=== PATIENT | male | born 1940 ===

== ENCOUNTER 2019-11-21 00:58 | Inpatient (IN) | payer MEDICARE, BC ==
[~2019-11-21] VITALS: Ht 180.3 cm; Wt 102.7 kg
--- NOTE | ~2019-11-21 | HEMODYNAMI ---
PATIENT:RIC AVELAR MEDICAL RECORD: [id number] : 40 LOCATION:[facility] D.[facility] ADMISSION DATE: 11/21/19 Generatedon:11/22/201911:54 Patient name: RIC AVELAR Patient #: [id number] SSN: : Date of study: 11/22/2019 Page: Of Hemodynamic Procedure Report Patient Data Patient Demographics Procedure consent was obtained First Name: RIC Gender: Male Last Name: ROSIO : 1940 Patient #: [id number] Age: 78 year(s) Race: Unknown Additional ID: [id number] Contact details [address]: [address] [place] [address] [id number] State: [place] City: [place] Zip code: [address] Past Medical History Allergies: No known allergies Admission Admission Data Admission Date: 11/21/2019 Admission Time: 16:54 Arrival Date: 11/21/2019 Arrival Time: 0:00 Room #: [facility] Height (in.): 59.84 BSA: 2.01 (m2) Height (cm.): 152 BMI: 46.75 (kg/m2) Weight (lbs.): 238.1 Weight (kg.): 108 Lab Results Lab Result Date: 11/22/2019 Lab Result Time: 0:00 Biochemistry Name Units Result Min Max BUN mg/dl 20 --(----)*- 7 18 Creatinine mg/dl 1.3 --(---*)-- 0.6 1.3 Procedure Procedure Types Cath Procedure Diagnostic Procedure Cardioversion External RENAE Procedure Description Procedure Date Procedure Date: 11/22/2019 Procedure Start Time: 11:29 Procedure End Time: 11:50 Procedure Staff Name Function Jarrell Cooper MD Performing Physician Mahesh Ann Jr, CRNA Additional personnel Christina Cuba RT Monitor Pratibha Hennessy RN Nurse Caridad Rivas Game Designer Procedure Data Cath Procedure Fluoroscopy Diagnostic fluoroscopy Total fluoroscopy Time: 0 time: 0 min min Diagnostic fluoroscopy Total fluoroscopy dose: 0 dose: 0 mGy mGy Estimated blood loss: 0 ml Procedure Complications No complications Procedure Medications Medication Administration Route Dosage Oxygen 8 l/min Hurricaine Shelby P.O. 1 Sprays Refer to Anesthesia Notes for Sedation Medications Hemodynamics Rest BSA: 2.01 (m2) O2 Consumption: Estimated: 219.44 (ml/min) O2 Consumption indexed : Estimated:109.17 (ml/min/m) Heart Rate: 56 (bpm) Snapshots Pre Cath Intra NCS Post Cath Vital Signs Time Heart Resp SPO2 etCO2 NIBP Rhythm Pain Sedation Rate (ipm) (%) (mmHg) (mmHg) Status Level (bpm) 11:27:53 98 18 94 0 112/64(82) A-Fib 0 (11) 10(A) , No pain 11:32:02 98 19 90 0 90/64(74) A-Fib 0 (11) 10(A) , No pain 11:36:08 61 18 90 0 87/48(74) SB 0 (11) 9(A) , No pain 11:38:36 55 16 90 0 91/48(72) SB 0 (11) 9(A) , No pain 11:42:43 48 17 91 0 91/47(60) SB 0 (11) 9(A) , No pain 11:46:49 52 18 95 0 90/52(66) SB 0 (11) 10(A) , No pain Medications Time Medication Route Dose Verified Delivered Reason Notes Effectiv eness by by 11:30:05 Oxygen NC-high 8 Jarrell Mckinnon used for flow l/min St Nikunj Hennessy RN procedure 11:30:14 Hurricaine P[address]O. 1 Jarrell Mckinnon Per Shelby Sprays St Nikunj Hennessy RN physician 11:30:21 Refer to Jarrell Mckinnon Anesthesia St Nikunj Hennessy RN Notes for Sedation Medications Procedure Log Time Note 11:08:27 Informed consent obtained and on chart 11:08:32 Patient Weight : 238.1 lbs 11:08:32 Patient Height : 59.84 inches 11:09:01 Procedure Status Cardioversion, RENAE. 11:09:02 Time tracking: Regular hours (M-F 7:00 - 5:00) 11:09:05 Plan of Care:Hemodynamics will remain stable., Cardiac rhythm will remain stable., Comfort level will be maintained., Respiratory function will remain adequate., Patient/ family verbilizes understanding of procedure., Procedure tolerated without complication., Recovers from procedure without complications.. 11:09:10 H&P Date Dictated: 11/22/2019 ER History on chart.. 11:09:16 Patient allergic to No known allergies 11:10:05 Lab Result : BUN 20 mg/dl 11:10:05 Lab Result : Creatinine 1.3 mg/dl 11:10:10 Christina Cuba RT(R) sent for patient. Start room use. 11:20:04 Mahesh Ann Jr PRE PRESS MANAGER present and monitoring patient for TIVA. 11:21:54 Patient arrived from Med II to CCL 2. Patient remains on bed/stretcher for procedure. 11:26:19 Warm blankets applied, and francisco hugger turned on for patient comfort. 11:26:19 Correct patient and procedure confirmed by team. 11:26:20 ECG and BP/O2 sat monitors applied to patient. 11:26:31 Rhythm: atrial fibrillation 11:26:32 Full Disclosure recording started 11:26:35 Pre-procedure instructions explained to patient. 11:26:35 Pre-op teaching completed and patient verbalized understanding. 11:26:36 Family in patients room. 11:26:38 Patient NPO since Midnight. 11:26:54 Is patient on blood thinner?No 11:27:31 Patient diabetic? Yes. 11:27:35 If diabetic: On Metformin? No 11:27:40 Previous problem with sedation/anesthesia? No ? 11:27:41 Snore? Yes 11:27:42 Sleep apnea? Yes 11:27:45 Deviated septum? No 11:27:46 Opens mouth fully? Yes 11:27:47 Sticks out tongue? Yes 11:27:49 Airway obstruction? No ? 11:27:50 Dentures? No ? 11:27:52 Patient pain scale 0/10 ?. 11:27:56 IV patent on arrival in right hand with 0.9% NaCl at [facility]. 11:27:59 Lab results completed and on chart. 11:28:01 Alarms reviewed by Ambrose Wood 11:28:31 Quick Combo opened to sterile field. 11:28:33 --------ALL STOP TIME OUT------ 11:28:34 Final Timeout: patient, procedure, and site verified with staff and physician. All members of the team are in agreement. 11::37 Fire Safety Assessment: C--Open oxygen or nitrous oxide is being used. 11::40 Physical assessment completed. ASA score P 3 - A patient with severe systemic disease as per Jarrell Cooper MD. 11::43 Sedation plan: TIVA Medication:Propofol 11:29:15 Procedure started. 11:29:23 RENAE 11::24 Caridad [place] [employer] 1 Thru 6 Home Teacher present for RENAE. 11::44 Vital chart was started 11:30:05 Oxygen 8 l/min NC-high flow was administered by Pratibha Hennessy RN; used for procedure; Verbal order read back and verified. 11:30:14 Hurricaine Shelby 1 Sprays P.O. was administered by Pratibha Hennessy RN; Per physician; Verbal order read back and verified. 11:30:21 Refer to Anesthesia Notes for Sedation Medications was administered by Pratibha Hennessy RN; ; Verbal order read back and verified. 11:30:27 Baseline sample Acquired. 11:30:35 RENAE started. 11:33:54 RENAE completed. 11:33:59 ------Cardioversion------ 11:34:00 Quick combo pads placed on patients chest and back. 11:34:02 Defibrillator synced and charged to 200 Joules. 11:34:11 Shock delivered. 11:35:49 Patient cardioverted to sinus bradycardia with PACs 11:36:20 Procedure ended.(Physican Out) 11:37:41 Fluoroscopy time 00.00 minutes. 11:37:42 Flurop Dose total: 0 11:37:42 Fluoroscopy dose: 0 mGy 11:37:44 Dose Area Product 0 mGy/cm. 11:37:49 Post-procedure physical assessment completed. ASA score P 3 - A patient with severe systemic disease as per Jarrell Cooper MD. 11:37:52 Estimated blood loss: 0 ml 11:37:53 Post procedure instruction explained to patient.Patient verbalizes understanding. 11:37:54 Patient needs reinforcement of post procedure teaching. 11:38:07 Procedure type changed to Cath procedure, Diagnostic procedure, Cardioversion External, RENAE 11:39:02 Procedure and supply charges have been captured, reviewed, submitted and are correct. 11:39:05 Procedure Complication : No complications 11:39:12 RENAE Findings: RENAE w/ cardioversion: no left atrial clot noted (proceed with cardioversion) 11:39:13 Operative report dictated upon procedure completion. 11:39:13 See physician's report for complete and final results. 11:50:20 Vital chart was stopped 11:50:23 Report given to [facility]. 11:50:26 Patient transfered to [facility] with Bed. 11:50:30 Procedure ended. 11:50:30 Full Disclosure recording stopped 11:50:36 End room use (Document Last) 11:50:49 End room use (Document Last) 11:51:07 End room use (Document Last) Device Usage Item Manufacture Quantity Catalog Hospital Part Current Minimal Lot# / Name Number Charge Number [facility] Cem or# Code [employer] 1 [id number] Combo Signature Audit [place]ink[place] Stage Time Signature Unsigned Intra-Procedure 11/22/2019 Christina Cuba 11:50:49 AM RT(R) Intra-Procedure 11/22/2019 Pratibha Hennessy RN 11:51:07 AM Intra-Procedure 11/22/2019 Jarrell Capellan 11:54:28 AM Nikunj JIMENEZ Signatures Performing Physician : Signature : Jarrell Cooper MD Date : Time : Monitor : Christina Cuba Signature : RT Date : Time : Nurse : Pratibha Hennessy RN Signature : Date : Time : [id number] [place] [address]
--- NOTE | ~2019-11-21 | HEMODYNAMI ---
PATIENT:RIC AVELAR MEDICAL RECORD: [id number] : 40 LOCATION:[facility] D.[facility] ADMISSION DATE: 11/21/19 Generatedon:11/21/201914:56 Patient name: RIC AVELAR Patient #: [id number] SSN: : Date of study: 11/21/2019 Page: Of Hemodynamic Procedure Report Patient Data Patient Demographics Procedure consent was obtained First Name: RIC Gender: Male Last Name: ROSIO : 1940 Patient #: [id number] Age: 78 year(s) Race: Unknown Additional ID: [id number] Contact details Address: [address] [place] [address] [id number] State: [place] City: [place] Zip code: [address] Past Medical History Allergies: No known allergies Admission Admission Data Admission Date: 11/21/2019 Admission Time: 3:53 Arrival Date: 11/21/2019 Arrival Time: 0:00 Room #: [facility] Height (in.): 59.84 BSA: 2.01 (m2) Height (cm.): 152 BMI: 46.75 (kg/m2) Weight (lbs.): 238.1 Weight (kg.): 108 Lab Results Lab Result Date: 11/21/2019 Lab Result Time: 0:00 Biochemistry Name Units Result Min Max BUN mg/dl 19 --(----)*- 7 18 Creatinine mg/dl 1.1 --(--*-)-- 0.6 1.3 CBC Name Units Result Min Max Hematocrit % 38.5 *-(----)-- 42 54 Hemoglobin g/dl 12.1 *-(----)-- 13.5 17.5 Procedure Procedure Types Cath Procedure Diagnostic Procedure [facility] w/Coronaries w/Grafts Procedure Description Procedure Date Procedure Date: 11/21/2019 Procedure Start Time: 14:41 Procedure End Time: 14:54 Procedure Staff Name Function Jarrell Cooper MD Performing Physician Logan Whalen RT Monitor Pratibha Hennessy RN Nurse Alaina Tian RT Scrub [facility] RT Monitor Procedure Data Cath Procedure Fluoroscopy Diagnostic fluoroscopy Total fluoroscopy Time: 1.5 time: 1.5 min min Diagnostic fluoroscopy Total fluoroscopy dose: 789 dose: 789 mGy mGy Contrast Material Contrast Material Type Amount (ml) Isovue 300 58 Entry Location Entry Primary Successful Side Size Upsize Upsize Entry Closure Succes sful Closure Location (Fr) 1 (Fr) 2 (Fr) Remarks Device Remarks Femoral Right 5 Fr Exoseal artery Estimated blood loss: 5 ml Diagnostic catheters Device Type Used For End Catheter Placement MULTIPACK JL 4.0 5Fr Procedure catheter MULTIPACK 3DRC 5Fr Procedure catheter MULTIPACK Pigtail 5 Fr Procedure catheter Procedure Complications No complications Procedure Medications Medication Administration Route Dosage Oxygen 8 l/min Lidocaine 2% added to field 20 Heparin Flush Bag added to field 2 bags (1000units/500ml NS) 0.9% NaCl I.V. 100 ml/hr Versed I.V. 1 mg Hemodynamics Rest BSA: 2.01 (m2) HGB: 12.1 (g/dl) O2 Consumption: Estimated: 269.21 (ml/min) O2 Co nsumption indexed: Estimated:133.94 (ml/min/m) Heart Rate: 121 (bpm) Pressure Samples Time Site Value (mmHg) Purpose Heart Use Rate(bpm) 14:46 LV 109/23,15 Snapshot 132 14:46 LV 113/24,17 Snapshot 132 14:47 AO 111/85(96) Pullback 127 Gradients Valve Time Site Site 2 Mean SEP/DFP Peak To Heart Use 1 (mmHg) (sec/min) Peak Rate (mmHg) (bpm) Aortic 14:47 LV AO 17 27 127 111/85(96) Calculations Valve P-P Mean Valve Index Valve Source Name Gradient Area Flow (cm2) Aortic 17 17 Snapshots Pre Cath Intra NCS Post Cath Vital Signs Time Heart Resp SPO2 etCO2 NIBP (mmHg) Rhythm Pain Sedation Rate (ipm) (%) (mmHg) Status Level (bpm) 14:32:35 122 22 85 0 122/88(106) A-Fib 0 (11) 10(A) , No pain 14:36:39 138 25 92 8.9 115/87(106) A-Fib 0 (11) 10(A) , No pain 14:40:39 117 24 90 8.9 118/90(102) A-Fib 0 (11) 10(A) , No pain 14:44:43 129 26 90 2.9 133/86(100) A-Fib 0 (11) 10(A) , No pain 14:48:51 124 25 90 5.2 128/88(108) A-Fib 0 (11) 10(A) , No pain 14:52:56 121 25 91 11.9 115/85(102) A-Fib 0 (11) 10(A) , No pain Medications Time Medication Route Dose Verified Delivered Reason Notes Effectiveness by by 14:34:49 Oxygen simple 8 Jarrell Buffie for low 02 pt with 80% mask l/min St Nikunj Hennessy RN sats oxygen saturation with 4 liters nasal cannula. simple mask placed, pt oxygenation improved to 90%. 14:36:09 Lidocaine 2% added 20ml Jarrell Jarrell for local to vial [facility] anesthetic field MD JIMENEZ 14:36:23 Heparin Flush added 2 Jarrell Jarrell used for Bag to bags [facility] procedure (1000units/500ml field MD JIMENEZ NS) 14:36:29 0.9% NaCl I.V. 100 Jarrell Buffie Per ml/hr St Nikunj Hennessy RN physician 14:42:22 Versed I.V. 1 mg Jarrell Buffie for St Nikunj Hennessy RN sedation MD Procedure Log Time Note 13:57:59 Diagnostic Cath Status : Urgent 13:58:36 Procedure Status Urgent Heart Cath (IP). 13:58:40 Alaina Tian RT(R) sent for patient. Start room use. 13:58:41 Time tracking: Regular hours (M-F 7:00 - 5:00) 13:58:46 Plan of Care:Hemodynamics will remain stable., Cardiac rhythm will remain stable., Comfort level will be maintained., Respiratory function will remain adequate., Patient/ family verbilizes understanding of procedure., Procedure tolerated without complication., Recovers from procedure without complications.. 14:09:39 Patient allergic to No known allergies 14:10:06 Lab Result : BUN 19 mg/dl 14:10:06 Lab Result : Creatinine 1.1 mg/dl 14:10:06 Lab Result : Hemoglobin 12.1 g/dl 14:10:06 Lab Result : Hematocrit 38.5 % 14:11:53 Patient Weight : 238.1 lbs 14:11:56 Patient Height : 59.84 inches 14:12:24 Arrival Date: 11/21/2019 12:00:00 AM 14:20:19 H&P Date Dictated: 11/21/2019 ER History on chart.. 14:22:01 Risk of Mortality: .1 14:22:03 Risk of blood transfusion: 2.6 14:22:07 Risk of RIANA: 3 14:22:16 Patient received from Med II to CCL 2 Alert and oriented. Tansferred to table in Supine position. 14:22:18 Signed procedure consent form obtained from patient. 14:22:19 Warm blankets applied, and francisco hugger turned on for patient comfort. 14:22:19 Correct patient and procedure confirmed by team. 14:25:40 Pre-procedure instructions explained to patient. 14:25:41 Pre-op teaching completed and patient verbalized understanding. 14:25:55 Patient diabetic? Yes. 14:25:56 If diabetic: On Metformin? No 14:26:01 Is patient on blood thinner?Yes 14:26:12 PLAVIX GIVEN AT 0812 14:26:25 Family in patients room. 14:26:27 Patient NPO since Midnight. 14:26:31 Previous problem with sedation/anesthesia? No ? 14:26:32 Snore? Yes 14:26:33 Sleep apnea? Yes 14:26:34 Deviated septum? No 14:26:36 Opens mouth fully? Yes 14:26:37 Sticks out tongue? No 14:26:43 Airway obstruction? No ? 14:26:44 Dentures? No ? 14:27:53 ECG and BP/O2 sat monitors applied to patient. 14:29:56 IV patent on arrival in right antecubital with 0.9% NaCl at KVO. 14:29:58 Patient pain scale 0/10 ?. 14:30:01 Lab results completed and on chart. 14:31:39 Vital chart was started 14:31:46 Rhythm: atrial fibrillation 14:31:48 Baseline sample Acquired. 14:31:54 Right groin area was prepped with chlora-prep and draped in sterile fashion 14:32:01 NO RADIAL PULSE 14:32:02 Alarms reviewed by R. N. 14:32:02 Sharps counted by scrub and verified by R.N. 14:34:16 Use device set Femoral Dx 14:34:17 ACIST Syringe (29533) opened to sterile field. 14:34:17 Bag Decanter (2002S) opened to sterile field. 14:34:18 ACIST Hand Control (20911) opened to sterile field. 14:34:19 ACIST Manifold (15558) opened to sterile field. 14:34:19 Tegaderm 4 x 4 (1626W) opened to sterile field. 14:34:31 Medline Cath Pack ([id number]) opened to sterile field. 14:34:32 DIAGNOSTIC Multipack 5Fr catheter set (QT9272) opened to sterile field. 14:34:34 IV Extension Set opened to sterile field. 14:34:37 SHEATH 5FR Milton (VIC921) opened to sterile field. 14:34:37 EMERALD Guide Wire (596-813) opened to sterile field. 14:34:49 Oxygen 8 l/min simple mask was administered by Pratibha Hennessy RN; for low 02 sats; pt with 80% oxygen saturation with 4 liters nasal cannula. simple mask placed, pt oxygenation improved to 90%. Verbal order read back and verified. 14:36:09 Lidocaine 2% 20ml vial added to field was administered by Jarrell Cooper MD; for local anesthetic; Verbal order read back and verified. 14:36:23 Heparin Flush Bag (1000units/500ml NS) 2 bags added to field was administered by Jarrell Cooper MD; used for procedure; Verbal order read back and verified. 14:36:29 0.9% NaCl 100 ml/hr I.V. was administered by Pratibha Hennessy RN; Per physician; Verbal order read back and verified. 14:39:02 Zero performed for pressure channel P1 14:39:53 --------ALL STOP TIME OUT------ 14:39:54 Final Timeout: patient, procedure, and site verified with staff and physician. All members of the team are in agreement. 14:39:55 Right groin site verified by team. 14:39:58 Fire Safety Assessment: A--An alcohol-based skin anteseptic being used preoperatively., C--Open oxygen or nitrous oxide is being used., D--An ESU, laser, or fiber-optic light is being used. 14:40:02 Physical assessment completed. ASA score P 3 - A patient with severe systemic disease as per Jarrell Cooper MD. 14:40:04 2) 60-89 Mildly reduced kidney function, and other findings (as for stage 1) point to kidney disease. 14:40:07 Maximum allowable contrast dose (3.7 X eGFR X 0.75)191 ml. 14:40:10 Sedation plan: IV Moderate Sedation Medication:Versed, Fentanyl 14:40:21 Zero performed for pressure channel P1 14:40:24 Zero performed for pressure channel P1 14:40:27 Zero performed for pressure channel P1 14:40:29 Zero performed for pressure channel P1 14:40:40 Zero performed for pressure channel P1 14:41:06 Procedure started. 14:41:07 Full Disclosure recording started 14:41:13 Local anesthetic to right femoral artery with Lidocaine 2% by Jarrell Cooper MD.INITIAL ACCESS ONLY 14:41:44 A 5 Fr sheath was inserted into the Right Femoral artery 14:42:22 Versed 1 mg I.V. was administered by Pratibha Hennessy RN; for sedation; Verbal order read back and verified. 14:42:34 A MULTIPACK JL 4.0 5Fr catheter was advanced over the wire and used for Procedure. 14:43:36 LCA angiography performed. 14:43:37 Catheter removed. 14:43:48 Procedure type changed to Cath procedure, Diagnostic procedure, LHC, LHC w/Coronaries w/Grafts 14:44:00 A MULTIPACK 3DRC 5Fr catheter was advanced over the wire and used for Procedure. 14:44:33 RCA angiography performed. 14:44:50 SVG to Circ angiography performed. 14:45:41 PATEL to LAD angiography performed. 14:45:45 Catheter removed. 14:46:03 A MULTIPACK Pigtail 5 Fr catheter was advanced over the wire and used for Procedure. 14:46:56 LV gram done using ENAMORADO 14:46:58 Injector settings: Ml/sec: 10, Volume: 20, 14:47:02 LV hemodynamics recorded. 14:47:07 EF : 25 % 14:47:09 Catheter removed. 14:47:25 EXOSEAL 5Fr (EX500) opened to sterile field. 14:47:35 Sheath removed intact; hemostasis achieved with Exoseal to the Right Femoral artery. 14:48:28 Procedure ended.(Physican Out) 14:49:04 Fluoroscopy time 01.50 minutes. 14:49:07 Fluoroscopy dose: 789 mGy 14:49:07 Flurop Dose total: 789 14:49:13 Dose Area Product 61302 mGy/cm. 14:49:17 Contrast amount:Isovue 300 58ml. 14:50:51 Maximum allowable dose exceeded? No. 14:50:53 Sharps counted by scrub and verified by R.N. 14:50:55 Post-op/insertion site Right Femoral artery dressed using a 4 x 4 and Tegaderm. 14:50:58 Post-procedure physical assessment completed. ASA score P 3 - A patient with severe systemic disease as per Jarrell Cooper MD. 14:51:01 Post procedure rhythm: unchanged. 14:52:[address] Jean, ordered to keep pt on simple mask at 8 liters, and plans to diurese. 14:52:44 Estimated blood loss: 5 ml 14:52:45 Post procedure instruction explained to patient.Patient verbalizes understanding. 14:52:45 Patient needs reinforcement of post procedure teaching. 14:54:20 Procedure and supply charges have been captured, reviewed, submitted and are correct. 14:54:22 Procedure Complication : No complications 14:54:24 Vital chart was stopped 14:54:25 [facility] Findings: mild to moderate CAD (<70%) 14:54:27 Operative report dictated upon procedure completion. 14:54:27 See physician's report for complete and final results. 14:54:29 Report given to [facility]. 14:54:32 Patient transfered to [facility] with Bed. 14:54:33 Procedure ended. 14:54:33 Full Disclosure recording stopped Device Usage Item Name Manufacture Quantity Catalog Hospital Part Current Minimal L ot# / Number Charge Number Stock Stock Serial# Code ACIST Acist 1 56043 855638 555626 411435 20 Syringe Medical (72385) Systems Inc Bag Microtek 1 685393 96438 334228 5 Decanter Medical Inc. () ACIST Hand Acist 1 34320 226235 211481 192607 5 Control Medical (38750) Systems Inc ACIST Acist 1 10097 407954 395003 296996 5 Manifold Medical (80536) Systems Inc Tegaderm 4 3M 1 1626W 703906 836737 722613 5 x 4 (1626W) Medline Medline 1 [id number] 718625 02243 152469 5 Cath Pack ([id number]) DIAGNOSTIC Cardinal 1 XT5077 533013 29976 562266 30 Multipack Health 5Fr catheter set (TR8038) IV Hospira 1 53404-65 097795 13342 034953 5 Extension Set SHEATH 5FR Terumo 1 ABT963 369653 887012 169757 5 Milton (BVI764) EMERALD Cardinal 1 489-605 544516 555584 060271 5 Guide Wire Health (210-151) MULTIPACK Cardinal 1 653578 5 JL 4.0 5Fr Health catheter MULTIPACK Cardinal 1 020713 5 3DRC 5Fr Health catheter MULTIPACK Cardinal 1 272792 5 Pigtail 5 Health Fr catheter EXOSEAL 5Fr Cardinal 1 EX500 505959 854984 321734 10 (EX500) Health Signature Audit [place] Stage Time Signature Unsigned Intra-Procedure 11/21/2019 Christina Cuba 2:55:15 PM RT(R); Pratibha Hennessy RN; Jarrell Cooper MD Signatures Performing Physician : Signature : Jarrell Cooper MD Date : Time : Monitor : Logan HERNANDEZ Signature : Date : Time : Nurse : Pratibha Hennessy RN Signature : Date : Time : Monitor : Christina Cuba Signature : RT Date : Time : [place] [id number] [place] [address]
[2019-11-21] MEDS ORDERED: CYMBALTA60 MG PO (01:07)
[2019-11-21] MEDS ORDERED: HUMALOG 30100 UNITS/ SC (01:08)
[2019-11-21] MEDS ORDERED: COZAAR50 MG PO (01:08)
[2019-11-21] MEDS ORDERED: LANTUS SOLOSTAR3 ML SC (01:08)
[2019-11-21] MEDS ORDERED: PROCARDIA XL60 MG PO (01:09)
[2019-11-21] MEDS ORDERED: LYRICA75 MG PO (01:09)
[2019-11-21 01:38] LABS: BASOPHILS 0.3 % (0-2); EOSINOPHILS 1.4 % (0-7); HEMATOCRIT 37.5 % (42.0-54.0); HEMOGLOBIN 11.8 g/dL (13.5-17.5); IMMATURE GRANULOCYTES 0.2 % (0-5); LYMPHOCYTES 20.2 % (15-50); MCH 28.6 pg (26.0-34.0); MCHC 31.5 g/dL (31.0-37.0); MCV 90.8 fL (80.0-100.0); MEAN PLATELET VOLUME 9.9 fL (7.4-10.4); NEUTROPHILS 63.9 % (40-80); PLATELET COUNT 211 10x3/uL (130-400); RBC 4.13 10x6/uL (4.20-6.10); RDW 15.2 % (11.5-14.5); WBC 6.2 10x3/uL (4.8-10.8)
[2019-11-21 01:51] LABS: ANION GAP 11.2 mmol/L (8-16); CALCIUM 8.4 mg/dL (8.5-10.1); CREATININE - SERUM 1.1 mg/dL (0.6-1.3); POTASSIUM - SERUM 4.2 mmol/L (3.5-5.1)
[2019-11-21 02:02] LABS: INR 1.23 (0.85-1.17); PROTIME 15.4 SECONDS (11.6-15.0)
[2019-11-21 02:03] LABS: APTT 35.6 SECONDS (22.8-39.4)
[2019-11-21 02:04] LABS: D-DIMER-QUANTITATIVE 1.28 ug/mLFEU (0.20-0.54)
[2019-11-21 02:08] LABS: ALBUMIN 3.1 g/dL (3.4-5.0); BILIRUBIN - TOTAL 0.46 mg/dL (0.2-1.3); MAGNESIUM - SERUM 1.7 mg/dL (1.8-2.4); PROTEIN - SERUM 6.3 g/dL (6.4-8.2); THYROID STIMULATING HORMONE 2.8 uIU/mL (0.36-3.74)
[2019-11-21 02:14] LABS: TROPONIN-I 3.046 ng/mL (0.000-0.060)
--- NOTE | 2019-11-21 02:50 | NUR ---
PT TO RADIOLOGY AT THIS TIME.
--- NOTE | 2019-11-21 03:15 | NUR ---
PT RETURNED FROM RADIOLOGY AT THIS TIME.
[2019-11-21 05:04] LABS: BASOPHILS 0.3 % (0-2); HEMATOCRIT 38.5 % (42.0-54.0); HEMOGLOBIN 12.1 g/dL (13.5-17.5); IMMATURE GRANULOCYTES 0.3 % (0-5); LYMPHOCYTES 26.6 % (15-50); MCH 28.5 pg (26.0-34.0); MCHC 31.4 g/dL (31.0-37.0); MCV 90.8 fL (80.0-100.0); MEAN PLATELET VOLUME 9.6 fL (7.4-10.4); NEUTROPHILS 56.8 % (40-80); PLATELET COUNT 234 10x3/uL (130-400); RBC 4.24 10x6/uL (4.20-6.10); RDW 15.3 % (11.5-14.5); WBC 5.9 10x3/uL (4.8-10.8)
[2019-11-21 05:24] LABS: CALC OSMOLALITY 278 mosm/kg (275-300); CALCIUM 8.7 mg/dL (8.5-10.1); CARBON DIOXIDE 27.2 mmol/L (21.0-32.0); CHLORIDE - SERUM 103 mmol/L (98-107); CKMB 23.1 U/L (0.0-3.6); CREATINE KINASE 243 UL (21-232); CREATININE - SERUM 1.1 mg/dL (0.6-1.3); GLUCOSE 189 mg/dL (74-106); MAGNESIUM - SERUM 1.9 mg/dL (1.8-2.4); PHOSPHOROUS 4.3 mg/dL (2.5-4.9); SODIUM 136 mmol/L (136-145); UREA NITROGEN 19 mg/dL (7-18); eGFR NON AFRICAN AMERICAN 69 mL/min (90-120)
--- NOTE | 2019-11-21 06:39 | NUR ---
ENTERED ROOM TO INFORM PT THAT THE THE ER PHYSICAIN HAD CALLED THE ARTIFICIAL TEETH INSPECTOR MORENA MULLEN TO NOTIFY THEM OF PTS CLIMBIMG TROPONIN LEVEL, AND THAT THEY WANT TO TAKE HIM TO THE SEAFOOD PROCESS WORKER TODAY. PT GOT UPSET AND STATED THAT HIS IS ON HER WAY HERE FROM [place], AND THAT HE DOESNT KNOW WHY HE WAS TRANSFERRED ALL THE WAY UP HERE WHEN IT WASNT NECESSARY. PT ALSO REFUSED TO SIGN CONSENTS FOR SEAFOOD PROCESS WORKER, STATED THAT HES NOT SURE IF HES EVEN GOING TO GO TO THE SEAFOOD PROCESS WORKER, PT ALSO STATED THAT HE WANTS TO WAIT ON TAKING THE HIGH DOSE PLAVIX THAT IS ORDERED.
[2019-11-21 06:56] LABS: CHOL - HDL RATIO 3.5 ratio (2.3-4.9); LDL-HDL RATIO 2.2 ratio (1.5-3.5)
[2019-11-21 08:00] VITALS: BP 130/86
[2019-11-21 11:00] VITALS: BP 137/68
--- NOTE | 2019-11-21 11:02 | NUR ---
PT WAS AWAKE AND ORIETNED WHEN I FIRST ENTERED. EXPLAINED TO PT HIS STATUS AND WHAT CONSENTS AND MEDICATIONS WERE FOR. PT STATED HE WANTED TO WAIT FOR HIS TO ARRIVE BEOFRE TAKING OR SIGNING ANYTHING. ARRIVED SHORLTY THEREAFTER AND I AGAIN EXPLAINED EVERYTHING. PT/ VERBALIZED UNDERSTANDING, MEDS GIVEN, CONSENTS SIGNED.
--- NOTE | 2019-11-21 12:33 | NUR ---
I have reviewed this patient and I concur with the Shift Assessment completed by the Licensed Practical Nurse today this shift.
[2019-11-21 14:53] LABS: CKMB 19.3 U/L (0.0-3.6); CREATINE KINASE 215 UL (21-232)
[2019-11-21 15:00] VITALS: BP 116/72
[2019-11-21 15:17] LABS: TROPONIN-I 3.363 ng/mL (0.000-0.060)
--- NOTE | 2019-11-21 15:26 | CN ---
PATIENT NAME:RIC AVELAR MEDICAL RECORD: [id number] : 40 LOCATION:[place] [address] ADMIT DATE: 11/21/19 ACCOUNT: [id number] CONSULTING PHYSICIAN: FRANCESCO PROCTOR MD REFERRING PHYSICIAN: HENRY CH MD DATE OF CONSULTATION: 11/21/2019 HISTORY OF PRESENT ILLNESS: A 78-year-old gentleman with a history of coronary artery disease, status post coronary artery bypass grafting approximately 10 years ago, admitted with a 1-week history of progressive chest tightness and pressure, unstable anginal symptomatology, was seen at [facility], was found to have atrial fibrillation, suspect further restenosis as well as NSTEMI, transferred here for further evaluation. Again, symptomology has been present for about a week. PAST MEDICAL HISTORY: Includes; 1. History of hypertension. 2. Hyperlipidemia. 3. Coronary artery disease as described above. 4. Diabetes mellitus. ALLERGIES: None known. MEDICATIONS: Include insulin per scale, Lyrica 75 p.o. b.i.d., Cymbalta 60 every day, nifedipine 60 every day, losartan 50 every day. SOCIAL HISTORY: Retired, nonsmoker, nondrinker. Easily takes care of all his ADLs, does try to walk on a regular basis. REVIEW OF SYSTEMS: The patient reports easy bruising but reports no swollen glands. The patient reports no fever, no night sweats, no significant weight gain, no significant weight loss. No significant exercise tolerance. The patient reports no dry eyes, no irritation, no vision change. Patient reports no difficulty hearing and no ear pain. Patient reports no frequent nose bleeds or nose and sinus problems. Patient reports on arm pain on exertion. No shortness of breath while lying down. No history of heart murmur. Patient reports no cough, no wheezing or coughing up blood. Patient reports no abdominal pain, no vomiting. Normal appetite. No diarrhea and not vomiting blood. No nausea and no constipation. Patient reports no incontinence. No difficulty urinating. No hematuria. No increased frequency. Patient reports no muscle aches. No weakness, no arthralgias, no back pain. No swelling of the extremities. Patient reports no abnormal mole, no jaundice, no rashes. Reports no loss of consciousness. No weakness and no numbness. No seizures, dizziness, or headaches. The patient reports no depression, no sleep disturbance, feeling safe in a relationship and no alcohol abuse. Patient reports on fatigue. Reports no runny nose or sinus pressure. No itching, no hives, and no frequent sneezing. PHYSICAL EXAMINATION: GENERAL: Pleasant, no acute distress, appears stated age. VITAL SIGNS: Blood pressure 115/79, pulse 108 and irregular. HEENT: Normocephalic, atraumatic. NECK: No bruits noted. HEART: Irregular, rates around 100, II/ systolic ejection murmur. LUNGS: Good air excursion. CONSULT REPORT [id number] RIC AVELAR ABDOMEN: Soft, nontender. EXTREMITIES: Pulses 2+. No edema. DIAGNOSTIC DATA: EKG shows atrial fibrillation, nonspecific ST-T changes. IMPRESSION: Non-ST elevation myocardial infarction, atrial fibrillation. PLAN: For angiography, will need no active management of atrial fibrillation after the above. TRANSINT:[id number] Voice Confirmation ID: [id number] DOCUMENT ID: [id number] FRANCESCO PROCTOR MD at 1526 CC: [id number] DICTATION DATE: 11/21/19 0851 TEAROOM HOST: 11/21/19 0938 ADM IN [facility] [address] [place] [address]
--- NOTE | 2019-11-21 19:28 | NUR ---
PATIENT SITTING UP IN BED, EATING SUPPER. HIGH FLOW NASAL CANNULA ON PATIENT STATS 96%. NO S/S OF DISTRESS. NO C/O PAIN. CALL IGHT WITHIN REACH. AT BEDSIDE. WILL CPOC.
--- NOTE | 2019-11-21 19:38 | NUR ---
RECEIVED BEDSIDE REPORT. PATIENT IS ALERT AND ORIENTED, RESTING COMFORTABLY IN BED. RESPIRATIONS ARE EVEN AND UNLABORED. NO S/S OF DISTRESS. NO C/O PAIN. CALL LIGHT WITHIN REACH. WILL CPOC.
[2019-11-21 20:00] VITALS: BP 103/56
[2019-11-22] VITALS: BP 96/63
--- NOTE | 2019-11-22 01:25 | NUR ---
PATIENT NOT WANTING TO WEAR CPAP. PATIENT PLACED ON HF NC @ 8L. PATIENT O2 STATS 92%.
--- NOTE | 2019-11-22 02:46 | NUR ---
ASSESSED PATIENT O2 STATS. 90% 8L HF. PATIENT PLACED BACK ON CPAP.
[2019-11-22 04:00] VITALS: BP 109/68
[2019-11-22 04:54] LABS: BASOPHILS 0.5 % (0-2); EOSINOPHILS 2.3 % (0-7); HEMATOCRIT 35.5 % (42.0-54.0); IMMATURE GRANULOCYTES 0.2 % (0-5); LYMPHOCYTES 20.4 % (15-50); MCH 28.4 pg (26.0-34.0); MCV 91.7 fL (80.0-100.0); MEAN PLATELET VOLUME 10.1 fL (7.4-10.4); MONOCYTES 16.2 % (2-11); NEUTROPHILS 60.4 % (40-80); PLATELET COUNT 211 10x3/uL (130-400); RBC 3.87 10x6/uL (4.20-6.10); RDW 15.4 % (11.5-14.5)
[2019-11-22 05:13] LABS: ANION GAP 9.8 mmol/L (8-16); CALCIUM 8.1 mg/dL (8.5-10.1); CREATININE - SERUM 1.3 mg/dL (0.6-1.3); MAGNESIUM - SERUM 1.8 mg/dL (1.8-2.4); PHOSPHOROUS 4.2 mg/dL (2.5-4.9); POTASSIUM - SERUM 3.8 mmol/L (3.5-5.1)
[2019-11-22 08:00] VITALS: BP 113/65
--- NOTE | 2019-11-22 09:27 | EC ---
PATIENT:RIC AEVLAR DATE OF SERVICE: 11/21/19 SEX: M MEDICAL RECORD: [id number] DATE OF : 40 LOCATION:D.M2 D.211 AGE OF PATIENT: 78 ADMISSION DATE: 11/21/19 REFERRING PHYSICIAN: INTERPRETING PHYSICIAN: FRANCESCO PROCTOR MD ECHOCARDIOGRAM REPORT ECHO CHARGES 4 ECHO COMPLETE Date: 11/21/19 CLINICAL DIAGNOSIS: AFIB ECHOCARDIOGRAPHIC MEASUREMENTS (adult normal given) AC root (d.<3.7cm) 2.9 cm LV Septum d (<1.2 cm> 0.9 cm Valve Excursion 1.8 cm LV Septum (systole) 1.0 cm Left Atria (s.<4.0cm> 4.7 cm LVPW d(<1.2cm) 0.9 cm RV (d.<2.3cm) 3.4 cm LVPW (sytole) 1.0 cm LV diastole(<5.6CM) 5.9 cm MV E-F(>70mm/sec) cm LV systole 4.9 cm LVOT Diameter 1.8 cm MV exc.(>10mm) cm Est.ejection fraction (50-75%) % DOPPLER: LVIT cm/sec A 104 cm/sec E cm/sec LA cm/sec RVSP 28.9 mmHg LVOT 75 cm/sec AOP1/2T m/s Asc. Ao 105 cm/sec RVOT 59 cm/sec RA cm/sec PA 74 cm/sec AV Gradient Peak 4.4 mmHg AV Mean 2.2 mmHg AV Area 2.2 cm MV Gradient Peak 4.5 mmHg MV Mean 2.6 mmHg MV Area cm COMMENTS: Calibration Specialist: Raymond [facility] Concrete Curer: 3 Dr. Alexander TAPE# PACS Pericardial Effusion N DATE OF SERVICE: Adequate 2D, color flow imaging, spectral Doppler and M-mode. No LVH. LV internal dimension is normal. LV is globally hypokinetic with reduced EF, estimated 30% to 35%. Aortic valve is tricuspid. No evidence of stenosis by Doppler interrogation. Left atrium is dilated at 4.7 cm. Mitral valve is thickened. Mild MR. Right-sided chambers are grossly normal. Mild TR. ECHOCARDIOGRAM REPORT [id number] RIC AVELAR TRANSINT:[id number] Voice Confirmation ID: [id number] DOCUMENT ID: [id number] FRANCESCO PROCTOR MD at 0927 CC: [id number] DICTATION DATE: 11/21/19 165 TRAIN CLERK: 11/22/19 0112 ADM IN [place] [address] [place] [address]
--- NOTE | 2019-11-22 09:27 | OP ---
PATIENT NAME: RIC AVELAR MEDICAL RECORD: [id number] :40 LOCATION:D.M2 D.2114 ADMISSION DATE:11/21/19 SURGEON: FRANCESCO PROCTOR MD DATE OF OPERATION: 11/21/2019 PROCEDURE: Left heart catheterization, selective coronary angiography, right femoral artery approach. CATHETERS: A 5-Vietnamese sheath, 5/4 left and right Carter, 5/4 pig. The procedure was well tolerated. The patient returned to the singh. Sheath removed. ExoSeal device placed. FINDINGS: Left ventriculography 30-degree ENAMORADO view shows global hypokinesis with 20% to 25%. CORONARY ANATOMY: LEFT MAIN: Left main is free of disease. LAD: Fills for a short period of time and is filled via competitive flow. CIRCUMFLEX: Totally occluded after a small OM. RIGHT CORONARY ARTERY: Totally occluded and fills well via left to right collaterals. BYPASS GRAFTS: Saphenous vein graft to the circumflex widely patent throughout its course. It is actually a left codominant system with a small right and gives collaterals to the small right. PATEL to the LAD is widely patent throughout it course with no evidence of post-anastomotic stenosis. IMPRESSION: Cardiomyopathy in excess of coronary artery disease, suspect this is tachy mediated with underlying atrial fibrillation; begin sotalol, Xarelto, and myopathic medications. We will plan for RENAE cardioversion in the near future. TRANSINT:[id number] Voice Confirmation ID: [id number] DOCUMENT ID: [id number] FRANCESCO PROCTOR MD at 0927 CC: [id number] DICTATION DATE: 11/21/19 1458 RECORD PRESS SUPERVISOR: 11/22/19 0458 ADM IN [facility] [address] [place] [address]
--- NOTE | 2019-11-22 10:45 | NUR ---
PT RESTING COMFROTABLY ON BIPAP WHEN I ENTERED. CURRENLTY TOLERATING HFNC AT 8L. DAUGHTER AT BEDSIDE. WAITING FOR CARDIOVERSION TODAY. CL INR EACH, SRX2.
[2019-11-22 11:04] VITALS: Ht 180.3 cm; Wt 102.7 kg
--- NOTE | 2019-11-22 11:22 | NUR ---
PT TAKEN FOR CARDIOVERSION. DAUGHTER REMAINING IN ROOM.
[2019-11-22 16:19] VITALS: BP 68/42
--- NOTE | 2019-11-22 18:34 | NUR ---
I have reviewed this patient and I concur with the Shift Assessment completed by the Licensed Practical Nurse today this shift.
[2019-11-22 20:30] VITALS: BP 91/57
[2019-11-23 00:32] VITALS: BP 91/61
--- NOTE | 2019-11-23 02:00 | NUR ---
VALERIO CATHETER D/Cd. NO S/S OF DISTRESS. NO C/O PAIN. CALL LIGHT WITHIN REACH. WILL CPOC.
[2019-11-23 05:50] LABS: BASOPHILS 0.5 % (0-2); EOSINOPHILS 2.4 % (0-7); HEMATOCRIT 35.7 % (42.0-54.0); HEMOGLOBIN 10.9 g/dL (13.5-17.5); IMMATURE GRANULOCYTES 0.2 % (0-5); LYMPHOCYTES 22.3 % (15-50); MCH 28.2 pg (26.0-34.0); MCHC 30.5 g/dL (31.0-37.0); MCV 92.5 fL (80.0-100.0); MEAN PLATELET VOLUME 9.9 fL (7.4-10.4); MONOCYTES 16.7 % (2-11); NEUTROPHILS 57.9 % (40-80); PLATELET COUNT 208 10x3/uL (130-400); RBC 3.86 10x6/uL (4.20-6.10); RDW 15.5 % (11.5-14.5); WBC 6.3 10x3/uL (4.8-10.8)
[2019-11-23 06:03] VITALS: BP 122/56
[2019-11-23 06:06] LABS: ANION GAP 9.7 mmol/L (8-16); CALCIUM 8.1 mg/dL (8.5-10.1); CARBON DIOXIDE 29.3 mmol/L (21.0-32.0); CREATININE - SERUM 1.5 mg/dL (0.6-1.3); MAGNESIUM - SERUM 1.9 mg/dL (1.8-2.4); PHOSPHOROUS 5.2 mg/dL (2.5-4.9)
--- NOTE | 2019-11-23 06:24 | NUR ---
PATIENT ON AND OFF CPAP THRPUGHTOUT NIGHT. PATIENT SWITCHED INBETWEEN HF NC AND CPAP. PATIENT O2 STAT RANGED 96-92%. PATIENT UP TO RESTROOM WITH ASSISTANCE. PATIENT C/O NOT HAVING A BOWEL MOVEMENT IN A COUPLE DAYS. NO S/S OF DISTRESS. CALL LIGHT WITHIN REACH. WILL CPOC.
--- NOTE | 2019-11-23 07:15 | NUR ---
RECEIVED PT IN BED EYES CLOSED RESP UNLABORED ON BIPAP AT THIS TIME EYES CLOSED NAD NOTED SON AT BEDSIDE
[2019-11-23 08:30] VITALS: BP 122/61
[2019-11-23 11:30] VITALS: BP 124/59
[2019-11-23 15:30] VITALS: BP 122/78
[2019-11-23 20:00] VITALS: BP 111/63
[2019-11-24] VITALS: BP 129/70
[2019-11-24 04:00] VITALS: BP 129/59
[2019-11-24 04:52] LABS: BASOPHILS 0.2 % (0-2); EOSINOPHILS 2.2 % (0-7); HEMATOCRIT 34.9 % (42.0-54.0); HEMOGLOBIN 10.7 g/dL (13.5-17.5); IMMATURE GRANULOCYTES 0.2 % (0-5); LYMPHOCYTES 23.5 % (15-50); MCH 27.9 pg (26.0-34.0); MCHC 30.7 g/dL (31.0-37.0); MCV 91.1 fL (80.0-100.0); MEAN PLATELET VOLUME 10.4 fL (7.4-10.4); MONOCYTES 15.3 % (2-11); NEUTROPHILS 58.6 % (40-80); PLATELET COUNT 208 10x3/uL (130-400); RBC 3.83 10x6/uL (4.20-6.10); RDW 15.2 % (11.5-14.5); WBC 5.9 10x3/uL (4.8-10.8)
[2019-11-24 05:07] LABS: ANION GAP 12.5 mmol/L (8-16); CALCIUM 8.1 mg/dL (8.5-10.1); CARBON DIOXIDE 28.4 mmol/L (21.0-32.0); CREATININE - SERUM 1.3 mg/dL (0.6-1.3); MAGNESIUM - SERUM 1.9 mg/dL (1.8-2.4); PHOSPHOROUS 4.3 mg/dL (2.5-4.9); POTASSIUM - SERUM 3.9 mmol/L (3.5-5.1)
[2019-11-24 09:38] VITALS: BP 129/64
--- NOTE | 2019-11-24 10:45 | NUR ---
PT AWAKE AND ORIENTED, LYING IN BED. WOKE EASILY TO LIGHT STIMULATION. DAUGHTE AT BEDSIDE. PT HAS NO COMPLAINTS. AMBULATES TO THE BATHROOM WITH MIN ASSIST. CL INR EACH, SRX2, TOOK MEDICATIONS ONE AT A TIME WITHOUT COMPLICATIONS.
[2019-11-24 13:30] VITALS: BP 152/67
--- NOTE | 2019-11-24 15:07 | NUR ---
I have reviewed this patient and I concur with the Shift Assessment completed by the Licensed Practical Nurse today this shift.
--- NOTE | 2019-11-24 15:08 | NUR ---
I have reviewed this patient and I concur with the Shift Assessment completed by the Licensed Practical Nurse today this shift.
--- NOTE | 2019-11-24 18:25 | NUR ---
PT RESTING COMFORTABLY. DAUGHTER OUT OF ROOM AT THIS TIME. CL IRNE ACH, SRX2. BREATHS EVEN, REGULAR AND UNLABORED.
--- NOTE | 2019-11-24 20:00 | NUR ---
INITIAL ROUNDS AND ASSESSMENT COMPLETED. PT RESTING IN BED. O2 @ 7L/HFNC. PIV TO RFA SALINE LOCKED. NO DISTRESS. SR PER TELEMETRY. CPOC.
[2019-11-24 20:20] VITALS: BP 177/64
--- NOTE | 2019-11-24 20:49 | NUR ---
BEDTIME MEDS GIVEN. FSBS. CPOC.
--- NOTE | 2019-11-24 20:57 | NUR ---
ASSISTED UP TO VOID AND BACK TO BED. SETTLED FOR THE NIGHT. CALL LIGHT IN REACH.
[2019-11-25 04:00] VITALS: BP 141/70
[2019-11-25 05:23] LABS: BASOPHILS 0.2 % (0-2); EOSINOPHILS 3.4 % (0-7); HEMATOCRIT 34.7 % (42.0-54.0); HEMOGLOBIN 10.7 g/dL (13.5-17.5); IMMATURE GRANULOCYTES 0.6 % (0-5); LYMPHOCYTES 20.3 % (15-50); MCHC 30.8 g/dL (31.0-37.0); MCV 90.8 fL (80.0-100.0); MEAN PLATELET VOLUME 10.5 fL (7.4-10.4); MONOCYTES 13.5 % (2-11); PLATELET COUNT 190 10x3/uL (130-400); RBC 3.82 10x6/uL (4.20-6.10); RDW 15.2 % (11.5-14.5)
[2019-11-25 05:37] LABS: CALC OSMOLALITY 288 mosm/kg (275-300); CALCIUM 7.9 mg/dL (8.5-10.1); CARBON DIOXIDE 30.8 mmol/L (21.0-32.0); CHLORIDE - SERUM 107 mmol/L (98-107); GLUCOSE 156 mg/dL (74-106); MAGNESIUM - SERUM 1.8 mg/dL (1.8-2.4); PHOSPHOROUS 3.3 mg/dL (2.5-4.9); POTASSIUM - SERUM 3.8 mmol/L (3.5-5.1); SODIUM 142 mmol/L (136-145); eGFR NON AFRICAN AMERICAN 77 mL/min (90-120)
[2019-11-25 05:48] LABS: UREA NITROGEN 20 mg/dL (7-18)
--- NOTE | 2019-11-25 07:52 | NUR ---
PT AWAKE AND ORIENTED, HAS HAD 2 RUNS OF 9 OF VTACH. PT RERPORTS AND APPEARS ASYMPTOMATIC AT THIS TIME. AT BEDSIDE. BREATHS EVEN, REGULAR, AND UNLABORED. BACK IN NS RYTHYM AT THIS TIME. CL IN REACH, SRX2, WILL CONT. TO MONITOR.
[2019-11-25 08:00] VITALS: BP 141/68
--- NOTE | 2019-11-25 10:03 | NUR ---
PT AWAKE AND ORIENTED, UP WALKING HALLS IWTH PHYSCIAL THERAPY. HAD ANOTHER RUN OF 5 VTACH. WILL CNT. TO MONITOR. CL IN REACH, SRX2, AT BEDSIDE.
[2019-11-25 11:00] VITALS: BP 139/59
--- NOTE | 2019-11-25 12:44 | NUR ---
Nutrition Follow-up: Eating well. Diet: Diabetic PO intake: 81% avg x last 4 meals Wt: 238# (11/21) Last BM: 11/22 Labs noted: Glu 156, Ca 7.9 Meds noted: Dulcolax, Humalog, electrolyte protocol -Monitor wt; noted daily wts ordered. -RD following.
--- NOTE | 2019-11-25 13:47 | OP ---
PATIENT NAME: RIC AVELAR MEDICAL RECORD: [id number] :40 LOCATION:D.M2 D.2114 ADMISSION DATE:11/21/19 SURGEON: FRANCESCO PROCTOR MD DATE OF OPERATION: 11/22/2019 PROCEDURE: Cardioversion. DESCRIPTION OF PROCEDURE: After general sedation via TIVA via anesthesia, a single synchronized shock was successful in restoring atrial fibrillation to normal sinus rhythm. ASSESSMENT: Successful cardioversion on . During the procedure, the patient was monitored continuously with pulse oximetry, telemetry, and noninvasive blood pressure monitoring. TRANSINT:[id number] Voice Confirmation ID: [id number] DOCUMENT ID: [id number] FRANCESCO PROCTOR MD at 1347 CC: [id number] DICTATION DATE: 11/22/19 1139 TECHNICAL SUPPORT TECHNICIAN: 11/22/192126 ADM IN [place] [address] [place] [address]
--- NOTE | 2019-11-25 13:47 | TEE ---
PATIENT:RIC AVELAR MEDICAL RECORD: [id number] [facility] AGE OF PATIENT: 78 ADMISSION DATE: 11/21/19 SEX: M REFERRING PHYSICIAN: INTERPRETING PHYSICIAN: FRANCESCO PROCTOR MD TRANSESOPHAGEAL ECHOCARDIOGRAM Date: 11/22/19 RENAE CHARGE Y INDICATIONS: CARDIOVERSION PREMEDICATIONS: PATIENT'S RESPONSE PROCEDURE DOPPLER MEASUREMENTS: LVIT LA PA 74 RA LVOT 75 RVOT 59 Asc. Ao 105 AV Gradient Peak 4.4 AV Mean 2.2 AV Area 2.2 MV Gradient Peak 4.5 MV Mean 2.6 MV Area INTERPRETATION: Doppler: 2-D: COLOR FLOW DOPPLER NORMAL SALINE STUDY: MISCELLANOUS: DIAGNOSIS: PLAN: Jewel Staker:3 Dr. Alexander Wood Carver Hand: Raymond GOTTLIEB COMMENTS: PACS DATE OF SERVICE: 11/22/2019 TRANSESOPHAGEAL NOTE After general sedation via TIVA via anesthesia, transesophageal Omniplane probe was placed in the esophagus and proximal stomach without difficulty. FINDINGS: Grossly no LVH. LV internal dimensions are normal. LV is globally hypokinetic with reduced EF, estimated EF 30% to 35%. Aortic valve is TRANSESOPHAGEAL ECHOCARDIOGRAM REPORT [id number] RIC AVELAR tricuspid. Good valve excursion. Mild AI with color flow imaging. Left atrium appears mildly dilated. Left atrial appendage is well visualized with good fibrillatory waves via Doppler interrogation. No evidence of thrombus. Mitral valve well visualized with good excursion. Mild MR. Right-sided chamber is grossly normal. Mild TR. At the end of procedure, transesophageal Omniplane probe was turned posteriorly and this showed minimal atherosclerotic debris in the descending aorta. TRANSINT:[id number] Voice Confirmation ID: [id number] DOCUMENT ID: [id number] at 1347 CC: [id number] DICTATION DATE: 11/22/19 1138 INORGANIC CHEMIST: 11/23/19 0236 ADM IN [facility] [address] [place] [address]
[2019-11-25 15:00] VITALS: BP 127/59
--- NOTE | 2019-11-25 19:00 | NUR ---
EVENING ROUNDS COMPLETE. PT SITTING UP IN BED. NO SIGNS OF DISTRESS. PT DENIES ANY PAIN OR NEEDS AT THIS TIME. CL IN REACH, BED IN LOWEST POSITION.
[2019-11-25 20:00] VITALS: BP 143/65
[2019-11-26 00:59] VITALS: BP 140/62
[2019-11-26 05:11] VITALS: BP 126/60
[2019-11-26 06:13] LABS: BASOPHILS 0.2 % (0-2); EOSINOPHILS 2.6 % (0-7); HEMATOCRIT 35.9 % (42.0-54.0); HEMOGLOBIN 10.8 g/dL (13.5-17.5); IMMATURE GRANULOCYTES 0.2 % (0-5); LYMPHOCYTES 23.7 % (15-50); MCH 27.6 pg (26.0-34.0); MCHC 30.1 g/dL (31.0-37.0); MCV 91.6 fL (80.0-100.0); MONOCYTES 12.8 % (2-11); NEUTROPHILS 60.5 % (40-80); PLATELET COUNT 185 10x3/uL (130-400); RBC 3.92 10x6/uL (4.20-6.10); WBC 4.9 10x3/uL (4.8-10.8)
[2019-11-26 06:31] LABS: CALC OSMOLALITY 286 mosm/kg (275-300); CALCIUM 8.3 mg/dL (8.5-10.1); CARBON DIOXIDE 33.4 mmol/L (21.0-32.0); CHLORIDE - SERUM 105 mmol/L (98-107); GLUCOSE 177 mg/dL (74-106); MAGNESIUM - SERUM 1.5 mg/dL (1.8-2.4); PHOSPHOROUS 2.6 mg/dL (2.5-4.9); POTASSIUM - SERUM 3.5 mmol/L (3.5-5.1); SODIUM 142 mmol/L (136-145); eGFR NON AFRICAN AMERICAN 77 mL/min (90-120)
[2019-11-26 06:47] LABS: UREA NITROGEN 13 mg/dL (7-18)
[2019-11-26 08:00] VITALS: BP 134/62
[2019-11-26 11:00] VITALS: BP 140/56
--- NOTE | 2019-11-26 13:52 | MORECARE ---
CASE MANAGEMENT DISCHARGE SUMMARY PATIENT: RIC AVELAR UNIT: [id number] ADM DATE: 11/21/19 AGE: 78 : 40 SEX: M ROOM/BED: D.2114 AUTHOR: JACINTA BHANDARI PHYSICIAN: REFERRING PHYSICIAN: HENRY CH MD DATE OF SERVICE: 11/26/19 Discharge Plan Patient Name: RIC AVELAR [facility] [facility] 1940 Planned Disposition: Anticipated Discharge Date: Discharge Date: Expected LOS: Initial Reviewer: [id number] Initial Review Date: 11/21/2019 Generated: 11/26/19 2:51 pm External Providers External Provider: OTHER-OTHER Next Contact Date: Service Request Date: Service Type: Resolution: Reviewer: Comments: Coverage Notice Reviewer: [id number] Cullen Trejo Notice Issued Date-Time: 11/21/2019 14:11 Notice Type: Medicare Outpatient Observation Notice Notice Delivered To: Family Member Relationship to Patient: Spouse Heliotherapist Name: Jesi Avelar Delivery Method: HAND - Hand Delivered Marisol Days: Prior Verbal Notification: Recipient Understood Notice: Yes Recipient Signature: Yes Med Rec Note Co-signed by Attending: Coverage Notice Comment: COWAN signed by patient's , declines a copy. Original to chart. Patient Name: RCI AVELAR Page [id number] at 1352 All edits/amendments must be made on the electronic document DICTATION DATE: 11/26/19 1351 CAPITAL EQUIPMENT SPECIALIST: STEFAN 11/26/19 1351 RPT#: [id number] DC DATE: STATUS: ADM IN [facility] [address] [place] [address] END OF REPORT
[2019-11-26 15:00] VITALS: BP 125/57
--- NOTE | 2019-11-26 19:30 | NUR ---
RECEIVED BEDSIDE REPORT. PATIENT IS ALERT AND ORIENTED, RESTING COMFORTABLY IN BED. RESPIRATIONS ARE EVEN AND UNLABORED. PATIENT REMAINS ON 5L HIGH FLOW NASAL CANNULA. NO S/S OF DISTRESS. NO C/O PAIN. CALL LIGHT WITHIN REACH. WILL CPOC.
[2019-11-26 20:00] VITALS: BP 132/62
[2019-11-27] VITALS: BP 115/52
[2019-11-27 04:00] VITALS: BP 119/50
[2019-11-27 08:00] VITALS: BP 129/62
[2019-11-27] MEDS ORDERED: ALDACTONE25 MG PO (10:10)
[2019-11-27] MEDS ORDERED: BETAPACE 80 MG80 MG PO (10:10)
[2019-11-27] MEDS ORDERED: ENTRESTO 24 MG1 EACH PO (10:10)
[2019-11-27] MEDS ORDERED: XARELTO10 MG PO (10:19)
[2019-11-27] MEDS ORDERED: Bumex PO (10:26)
--- NOTE | 2019-11-27 13:57 | NUR ---
PT SP02 DROPPED TO 83% WITHOUT 02 AT REST. PATIENT WAS PLACED BACK ON 02 AT 4L. HIS SP02 RECOVERED TO 95%
--- NOTE | 2019-11-27 14:05 | MORECARE ---
CASE MANAGEMENT DISCHARGE SUMMARY PATIENT: RIC AVELAR UNIT: [id number] ADM DATE: 11/21/19 AGE: 78 : 40 SEX: M ROOM/BED: D.6454 AUTHOR: JACINTA BHANDARI PHYSICIAN: REFERRING PHYSICIAN: HENRY CH MD DATE OF SERVICE: 11/27/19 Discharge Plan Patient Name: [facility]IC AVEL[facility] [facility] 1940 Planned Disposition: Anticipated Discharge Date: Discharge Date: Expected LOS: Initial Reviewer: [id number] Initial Review Date: 11/21/2019 Generated: 11/27/19 3:04 pm External Providers External Provider: Abran Keys Contact Date: Service Request Date: Service Type: Resolution: Reviewer: Comments: Coverage Notice Reviewer: [id number] Cullen Trejo Notice Issued Date-Time: 11/21/2019 14:11 Notice Type: Medicare Outpatient Observation Notice Notice Delivered To: Family Member Relationship to Patient: Spouse Program Aide Group Work Name: Jesi Avelar Delivery Method: HAND - Hand Delivered Marisol Days: Prior Verbal Notification: Recipient Understood Notice: Yes Recipient Signature: Yes Med Rec Note Co-signed by Attending: Coverage Notice Comment: COWAN signed by patient's , declines a copy. Original to chart. Last DP export: 11/26/19 12:52 pm Patient Name: RIC AVELAR Page [id number] at 1405 All edits/amendments must be made on the electronic document DICTATION DATE: 11/27/19 140 SLIP MIXER: STEFAN 11/27/19 1404 RPT#: [id number] DC DATE: STATUS: ADM IN [facility] [address] [place] [address] END OF REPORT
--- NOTE | 2019-11-27 14:20 | MORECARE ---
CASE MANAGEMENT DISCHARGE SUMMARY PATIENT: RIC AVELAR UNIT: [id number] ADM DATE: 11/21/19 AGE: 78 : 40 SEX: M ROOM/BED: D.2144 AUTHOR: JACINTA BHANDARI PHYSICIAN: REFERRING PHYSICIAN: HENRY CH MD DATE OF SERVICE: 11/27/19 Discharge Plan Patient Name: RIC AVELAR Facility: [facility]:[place] : 1940 Planned Disposition: Home Health Service Anticipated Discharge Date: 11/27/19 Discharge Date: Expected LOS: 6 Initial Reviewer: [id number] Initial Review Date: 11/21/2019 Generated: 11/27/19 3:19 pm External Providers [facility] Provider[facility] Next Contact Date: Service Request Date: Service Type: Resolution: Reviewer: Comments: Coverage Notice Reviewer: [id number] Trejo Notice Issued Date-Time: 11/21/2019 14:11 Notice Type: Medicare Outpatient Observation Notice Notice Delivered To: Family Member Relationship to Patient: Spouse Macaroni Press Operator Name: Jesi Avelar Delivery Method: HAND - Hand Delivered Marisol Days: Prior Verbal Notification: Recipient Understood Notice: Yes Recipient Signature: Yes Med Rec Note Co-signed by Attending: Coverage Notice Comment: COWAN signed by patient's , declines a copy. Original to chart. Reviewer: [id number] Cullen Trejo Notice Issued Date-Time: 11/27/2019 14:12 Notice Type: IM Discharge Notice Notice Delivered To: Family Member Relationship to Patient: Spouse Macaroni Press Operator Name: Merlene Avelar Delivery Method: HAND - Hand Delivered Marisol Days: Prior Verbal Notification: Recipient Understood Notice: Yes Recipient Signature: Yes Med Rec Note Co-signed by Attending: Coverage Notice Comment: DC IMM signed by Reviewer: [id number] Trejo Notice Issued Date-Time: 11/27/2019 14:12 Notice Type: Patient Choice Letter Notice Delivered To: Family Member Relationship to Patient: Spouse Macaroni Press Operator Name: Jesi Avelar Delivery Method: HAND - Hand Delivered Marisol Days: Prior Verbal Notification: Recipient Understood Notice: Yes Recipient Signature: Yes Med Rec Note Co-signed by Attending: Coverage Notice Comment: Patient choice for [facility] unit Reviewer: [id number] Trejo Notice Issued Date-Time: 11/27/2019 14:12 Notice Type: Patient Choice Letter Notice Delivered To: Family Member Relationship to Patient: Spouse Macaroni Press Operator Name: Jesi Avelar Delivery Method: HAND - Hand Delivered Marisol Days: Prior Verbal Notification: Recipient Understood Notice: Yes Recipient Signature: Yes Med Rec Note Co-signed by Attending: Coverage Notice Comment: Erick VELÁZQUEZ Reviewer: [id number] - Maude Trejo Notice Issued Date-Time: 11/27/2019 14:12 Notice Type: Patient Choice Letter Notice Delivered To: Family Member Relationship to Patient: Spouse Macaroni Press Operator Name: Jesi Avelar Delivery Method: HAND - Hand Delivered Marisol Days: Prior Verbal Notification: Recipient Understood Notice: Yes Recipient Signature: Yes Med Rec Note Co-signed by Attending: Coverage Notice Comment: Abner Otto DP export: 11/27/19 1:05 pm Patient Name: RIC AVELAR Page [phone] at 1420 All edits/amendments must be made on the electronic document DICTATION DATE: 11/27/19 141 FLOUR BROKER: STEFAN 11/27/19 1419 RPT#: [id number] DC DATE: STATUS: ADM IN [facility] [address] [place] [address] END OF REPORT
--- NOTE | 2019-11-27 14:57 | NUR ---
IV AND TELEMETRY DCD. DC PLANS GIVEN. UNDERSTANDING VOICED. ESCORTED TO CAR BY W/C.
--- NOTE | 2019-11-28 12:07 | MORECARE ---
CASE MANAGEMENT DISCHARGE SUMMARY PATIENT: RIC AVELAR UNIT: [id number] ADM DATE: 11/21/19 AGE: 78 : 40 SEX: M ROOM/BED: D.2114 AUTHOR: JACINTA BHANDARI PHYSICIAN: REFERRING PHYSICIAN: HENRY CH MD DATE OF SERVICE: 11/28/19 Discharge Plan Patient Name: RIC AVELAR [facility] [facility] 1940 Planned Disposition: Home Health Service Anticipated Discharge Date: 11/27/19 Discharge Date: 11/27/2019 Expected LOS: 6 Initial Reviewer: [id number] Initial Review Date: 11/21/2019 Generated: 11/28/19 1:07 pm Coverage Notice Reviewer: [id number] Cullen Trejo Notice Issued Date-Time: 11/21/2019 14:11 Notice Type: Medicare Outpatient Observation Notice Notice Delivered To: Family Member Relationship to Patient: Spouse House Visitor Name: Jesi Avelar Delivery Method: HAND - Hand Delivered Marisol Days: Prior Verbal Notification: Recipient Understood Notice: Yes Recipient Signature: Yes Med Rec Note Co-signed by Attending: Coverage Notice Comment: COWAN signed by patient's , declines a copy. Original to chart. Reviewer: [id number] Cullen Trejo Notice Issued Date-Time: 11/27/2019 14:12 Notice Type: IM Discharge Notice Notice Delivered To: Family Member Relationship to Patient: Spouse House Visitor Name: Merlene Avelar Delivery Method: HAND - Hand Delivered Marisol Days: Prior Verbal Notification: Recipient Understood Notice: Yes Recipient Signature: Yes Med Rec Note Co-signed by Attending: Coverage Notice Comment: DC IMM signed by Reviewer: [id number] Cullen Trejo Notice Issued Date-Time: 11/27/2019 14:12 Notice Type: Patient Choice Letter Notice Delivered To: Family Member Relationship to Patient: Spouse House Visitor Name: Jesi Avelar Delivery Method: HAND - Hand Delivered Marisol Days: Prior Verbal Notification: Recipient Understood Notice: Yes Recipient Signature: Yes Med Rec Note Co-signed by Attending: Coverage Notice Comment: Patient choice for [facility] unit Reviewer: [id number] Cullen Trejo Notice Issued Date-Time: 11/27/2019 14:12 Notice Type: Patient Choice Letter Notice Delivered To: Family Member Relationship to Patient: Spouse House Visitor Name: Jesi Avelar Delivery Method: HAND - Hand Delivered Marisol Days: Prior Verbal Notification: Recipient Understood Notice: Yes Recipient Signature: Yes Med Rec Note Co-signed by Attending: Coverage Notice Comment: Erick VELÁZQUEZ Reviewer: [id number] Cullen Trejo Notice Issued Date-Time: 11/27/2019 14:12 Notice Type: Patient Choice Letter Notice Delivered To: Family Member Relationship to Patient: Spouse House Visitor Name: Jesi Avelar Delivery Method: HAND - Hand Delivered Marisol Days: Prior Verbal Notification: Recipient Understood Notice: Yes Recipient Signature: Yes Med Rec Note Co-signed by Attending: Coverage Notice Comment: Boby LEE Abner Last DP export: 11/27/19 1:20 pm Patient Name: RIC AEVLAR Page [phone] at 1207 All edits/amendments must be made on the electronic document DICTATION DATE: 11/28/19 1207 LIFE ENRICHMENT SPECIALIST: STEFAN 11/28/19 1207 RPT#: [id number] DC DATE:11/27/19 STATUS: DIS IN [facility] [address] [place] [address] END OF REPORT
--- NOTE | 2019-11-28 15:52 | MORECARE ---
CASE MANAGEMENT DISCHARGE SUMMARY PATIENT: RIC AVELAR UNIT: [id number] ADM DATE: 11/21/19 AGE: 78 : 40 SEX: M ROOM/BED: D.4934 AUTHOR: JACINTA BHANDARI PHYSICIAN: REFERRING PHYSICIAN: HENRY CH MD DATE OF SERVICE: 11/28/19 Discharge Plan Patient Name: RIC AVELAR [facility]:[place] : 1940 Planned Disposition: Home Health Service Anticipated Discharge Date: 11/27/19 Discharge Date: 11/27/2019 Expected LOS: 6 Initial Reviewer: [id number] Initial Review Date: 11/21/2019 Generated: 11/28/19 4:51 pm Comments DCP- Discharge Planning Updated by [id number]: Maude Trejo on 11/28/19 2:[address] Late Entry: 11/24 CM met with patient to discuss initial discharge planning. Patient is in agreement to proceed with the assessment. Patient's Jesi Avelar ([phone]) reports that he lives at home independently with her. Patient is sedated. Stairs/steps: 3 w/rails. PCP: BRIDGETTE Cortez/Dr. Feng, [place]. Pharmacy: [facility]. HHS: Possibly. DME: None. 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 CM discussed the availability of HH, Rehab, SNF, OP Therapy, DME services. Patient denies the need for additional services at this time and feels safe returning to previous environment. Patient denies hospitalization within the past 30 days. Patient denies the use of community resources TICKER WIRER. Transportation at time of discharge: Jesi (). Coverage Notice Reviewer: [id number] Cullen Trejo Notice Issued Date-Time: 11/21/2019 14:11 Notice Type: Medicare Outpatient Observation Notice Notice Delivered To: Family Member Relationship to Patient: Spouse Human Resources Talent Manager Name: Jesi Avelar Delivery Method: HAND - Hand Delivered Marisol Days: Prior Verbal Notification: Recipient Understood Notice: Yes Recipient Signature: Yes Med Rec Note Co-signed by Attending: Coverage Notice Comment: COWAN signed by patient's , declines a copy. Original to chart. Reviewer: [id number] Cullen Trejo Notice Issued Date-Time: 11/27/2019 14:12 Notice Type: IM Discharge Notice Notice Delivered To: Family Member Relationship to Patient: Spouse Human Resources Talent Manager Name: Merlene Avelar Delivery Method: HAND - Hand Delivered Marisol Days: Prior Verbal Notification: Recipient Understood Notice: Yes Recipient Signature: Yes Med Rec Note Co-signed by Attending: Coverage Notice Comment: DC IMM signed by Reviewer: [id number] Trejo Notice Issued Date-Time: 11/27/2019 14:12 Notice Type: Patient Choice Letter Notice Delivered To: Family Member Relationship to Patient: Spouse Human Resources Talent Manager Name: Jesi Avelar Delivery Method: HAND - Hand Delivered Marisol Days: Prior Verbal Notification: Recipient Understood Notice: Yes Recipient Signature: Yes Med Rec Note Co-signed by Attending: Coverage Notice Comment: Patient choice for [facility] unit Reviewer: [id number] Trejo Notice Issued Date-Time: 11/27/2019 14:12 Notice Type: Patient Choice Letter Notice Delivered To: Family Member Relationship to Patient: Spouse Human Resources Talent Manager Name: Jesi Avelar Delivery Method: HAND - Hand Delivered Marisol Days: Prior Verbal Notification: Recipient Understood Notice: Yes Recipient Signature: Yes Med Rec Note Co-signed by Attending: Coverage Notice Comment: rEick VELÁZQUEZ Reviewer: [id number] Cullen Trejo Notice Issued Date-Time: 11/27/2019 14:12 Notice Type: Patient Choice Letter Notice Delivered To: Family Member Relationship to Patient: Spouse Human Resources Talent Manager Name: Jesi Avelar Delivery Method: HAND - Hand Delivered Marisol Days: Prior Verbal Notification: Recipient Understood Notice: Yes Recipient Signature: Yes Med Rec Note Co-signed by Attending: Coverage Notice Comment: Abner Otto Last DP export: 11/28/19 11:07 am Patient Name: RIC AVELAR Page [id number] at 1552 All edits/amendments must be made on the electronic document DICTATION DATE: 11/28/19 1551 DRAMATIC CRITIC: STEFAN 11/28/19 1551 RPT#: [id number] DC DATE:11/27/19 STATUS: DIS IN [facility] [address] [place] [address] END OF REPORT
--- NOTE | 2019-11-28 16:00 | MORECARE ---
CASE MANAGEMENT DISCHARGE SUMMARY PATIENT: RIC AVELAR UNIT: [id number] ADM DATE: 11/21/19 AGE: 78 : 40 SEX: M ROOM/BED: D.6134 AUTHOR: ELISABET,DOC PHYSICIAN: REFERRING PHYSICIAN: HENRY CH MD DATE OF SERVICE: 11/28/19 Discharge Plan Patient Name: RIC AVELAR [facility]:[place] : 1940 Planned Disposition: Home Health Service Anticipated Discharge Date: 11/27/19 Discharge Date: 11/27/2019 Expected LOS: 6 Initial Reviewer: [id number] Initial Review Date: 11/21/2019 Generated: 11/28/19 4:59 pm Comments DCP- Discharge Planning Updated by [id number]: Maude Trejo on 11/28/19 2:[address] 11/26: Spouse no longer wants patient to go into a swing bed. Request [facility] with [facility] [place]. CM arranged HHS with [facility] [place], faxed the required information. Home O2, portable O2, Nebulizer, Walker, with [facility]. A portable O2 will be provided for the patient's transportation home. Patient drove him home. 11/25: CM met with spouse again. Spouse would like for the patient to go into a swing bed, in [place]. CM contacted [facility] for a swing bed, faxed required information. Await determination. Late Entry: 11/24 CM met with patient to discuss initial discharge planning. Patient is in agreement to proceed with the assessment. Patient's Jesi Avelar ([phone]) reports that he lives at home independently with her. Patient is sedated. Stairs/steps: 3 w/rails. PCP: BRIDGETTE Cortez/Dr. Feng, [place]. [facility] HHS: Possibly. DME: None. 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 CM discussed the availability of HH, Rehab, SNF, OP Therapy, DME services. Patient denies the need for additional services at this time and feels safe returning to previous environment. Patient denies hospitalization within the past 30 days. Patient denies the use of community resources SHOE STOCK ASSOCIATE. Transportation at time of discharge: Jesi (). Coverage Notice Reviewer: [id number] Cullen Trejo Notice Issued Date-Time: 11/21/2019 14:11 Notice Type: Medicare Outpatient Observation Notice Notice Delivered To: Family Member Relationship to Patient: Spouse Retail Clerk Name: Jesi Avelar Delivery Method: HAND - Hand Delivered Marisol Days: Prior Verbal Notification: Recipient Understood Notice: Yes Recipient Signature: Yes Med Rec Note Co-signed by Attending: Coverage Notice Comment: COWAN signed by patient's , declines a copy. Original to chart. Reviewer: [id number] Trejo Notice Issued Date-Time: 11/27/2019 14:12 Notice Type: IM Discharge Notice Notice Delivered To: Family Member Relationship to Patient: Spouse Retail Clerk Name: Merlene Avelar Delivery Method: HAND - Hand Delivered Marisol Days: Prior Verbal Notification: Recipient Understood Notice: Yes Recipient Signature: Yes Med Rec Note Co-signed by Attending: Coverage Notice Comment: DC IMM signed by Reviewer: [id number] Trejo Notice Issued Date-Time: 11/27/2019 14:12 Notice Type: Patient Choice Letter Notice Delivered To: Family Member Relationship to Patient: Spouse Retail Clerk Name: Jesi Avelar Delivery Method: HAND - Hand Delivered Marisol Days: Prior Verbal Notification: Recipient Understood Notice: Yes Recipient Signature: Yes Med Rec Note Co-signed by Attending: Coverage Notice Comment: Patient choice for [facility] unit Reviewer: [id number] Trejo Notice Issued Date-Time: 11/27/2019 14:12 Notice Type: Patient Choice Letter Notice Delivered To: Family Member Relationship to Patient: Spouse Retail Clerk Name: Jesi Avelar Delivery Method: HAND - Hand Delivered Marisol Days: Prior Verbal Notification: Recipient Understood Notice: Yes Recipient Signature: Yes Med Rec Note Co-signed by Attending: Coverage Notice Comment: Erick VELÁZQUEZ Reviewer: [id number] Cullen Trejo Notice Issued Date-Time: 11/27/2019 14:12 Notice Type: Patient Choice Letter Notice Delivered To: Family Member Relationship to Patient: Spouse Retail Clerk Name: Jesi Avelar Delivery Method: HAND - Hand Delivered Marisol Days: Prior Verbal Notification: Recipient Understood Notice: Yes Recipient Signature: Yes Med Rec Note Co-signed by Attending: Coverage Notice Comment: Abner Otto Last DP export: 11/28/19 2:52 pm Patient Name: RIC AVELAR Page [phone] at 1600 All edits/amendments must be made on the electronic document DICTATION DATE: 11/28/191599 ECD: STEFAN 11/28/191599 RPT#: [id number] DC DATE:11/27/19 STATUS: DIS IN [facility] [address] [place] [address] END OF REPORT
== END 2019-11-27 15:00 | disposition home health service (06) | DRG 280 ==
LOC: D.ER 00:58 → OBSVTIME 03:53 → D.M2 03:53
PROVIDERS: Family Medicine; Internal Medicine Cardiovascular Disease; Internal Medicine Interventional Cardiology; ADMIT Emergency Medicine; ATTEND Emergency Medicine
PROC: B2151ZZ Fluoroscopy of Left Heart using Low Osmolar Contrast (ICD-10-PCS; 2019-11-21)
PROC: 4A023N7 Measurement of Cardiac Sampling and Pressure, Left Heart, Percutaneous Approach (ICD-10-PCS; 2019-11-21)
PROC: B2111ZZ Fluoroscopy of Multiple Coronary Arteries using Low Osmolar Contrast (ICD-10-PCS; principal; 2019-11-21 13:58)
DX: I48.91 Unspecified atrial fibrillation (principal); I21.4 Non-ST elevation (NSTEMI) myocardial infarction; I50.21 Acute systolic (congestive) heart failure; I25.10 Atherosclerotic heart disease of native coronary artery without angina pectoris; I42.9 Cardiomyopathy, unspecified; Z79.01 Long term (current) use of anticoagulants; I10 Essential (primary) hypertension; E78.5 Hyperlipidemia, unspecified; E11.65 Type 2 diabetes mellitus with hyperglycemia; K59.00 Constipation, unspecified; E11.40 Type 2 diabetes mellitus with diabetic neuropathy, unspecified; R00.0 Tachycardia, unspecified; I11.0 Hypertensive heart disease with heart failure; E66.9 Obesity, unspecified; Z68.34 Body mass index [BMI] 34.0-34.9, adult; Z91.19 Patient's noncompliance with other medical treatment and regimen